=== PATIENT | female | born 1955 | race Caucasian/White ===

== ENCOUNTER 2022-04-26 16:00 | Inpatient (IN) ==
[2022-04-26 17:21] LABS: Venous Bicarbonate HCO3 26.1 mmol/L (24-28)
[2022-04-26] MEDS ORDERED: LORazepam 2 mg VIAL 1 ml IV PUSH ONE ×2 (17:26→20:39)
[2022-04-26] MEDS ORDERED: Lorazepam PYXIS KEY PRN ×2 (17:26→20:39)
[2022-04-26] MEDS ORDERED: NS 0.9% 1000 ml BAG 1,000 ML IV ONE (17:27)
[2022-04-26 17:28] LABS: Activated Partial Thrombo Time 30.4 seconds (26.0-38.0); INR 1.15 (0.88-1.18)
[2022-04-26 17:59] LABS: ALT 10 U/L (7-52); AST 13 U/L (13-39); Albumin 4.2 g/dL (3.2-5.2); Albumin/Globulin Ratio 1.9 (1-3); Alcohol, S < 13 mg/dL (<13); Alkaline Phosphatase 82 U/L (35-149); Anion Gap 8 mmol/L (2-11); Blood Urea Nitrogen 11 mg/dL (6-24); CO2 Carbon Dioxide 22 mmol/L (22-32); Calcium 9.4 mg/dL (8.6-10.3); Chloride 99 mmol/L (101-111); Cholesterol 188 mg/dL; Globulin 2.2 g/dL (2-4); Glucose 94 mg/dL (70-100); HDL Cholesterol 50.7 mg/dL; LDL Cholesterol 112 mg/dL; Magnesium 2.2 mg/dL (1.9-2.7); Microcytosis 3+; Platelet Morphology Large; Potassium 4.1 mmol/L (3.5-5.0); Sodium 129 mmol/L (135-145); Total Protein 6.4 g/dL (6.4-8.9); Triglycerides 125 mg/dL; eGFR CKD-EPI 90.1 (>60)
[2022-04-26 18:00] LABS: Spherocytes 1+; Tear Drop Cells 1+
[2022-04-26 18:02] LABS: ABS Basophils 0.2 10^3/ul (0-0.2); ABS Eosinophils 0.1 10^3/ul (0-0.6); ABS Lymphocytes 2.2 10^3/ul (1.0-4.8); ABS Monocytes 0.6 10^3/ul (0-0.8); ABS Neutrophils 7.1 10^3/ul (1.5-7.7); Eosinophil % 0.8 %; Hematocrit 28 % (35-47); Hemoglobin 8.5 g/dL (12.0-16.0); Lymphocyte % 22.2 %; Mean Corpuscular HGB Conc 31 g/dL (31-36); Mean Corpuscular Hemoglobin 20 pg (27-31); Mean Corpuscular Volume 65 fL (80-97); Mean Platelet Volume 7.3 fL (7.4-10.4); Platelet Count 336 10^3/uL (150-450); Red Blood Count 4.26 10^6 /uL (3.70-4.87); Red Cell Distribution Width 19 % (10-15); White Blood Count 10.1 10^3/uL (3.5-10.8)
[2022-04-26 18:31] LABS: Acetaminophen < 15 mcg/mL; Salicylate < 2.50 mg/dL (<30)
[2022-04-26 18:46] LABS: Urine Appearance Clear; Urine Bilirubin Negative (Negative); Urine Blood Negative (Negative); Urine Color Straw; Urine Glucose Negative (Negative); Urine Ketones Negative (Negative); Urine Nitrite Negative (Negative); Urine Protein Negative (Negative); Urine Specific Gravity 1.003 (1.002-1.030); Urine Urobilinogen Negative (Negative)
[2022-04-26 18:58] LABS: TSH Ultra Thyroid Stim Horm 0.2 mcIU/mL (0.34-5.60)
[2022-04-26 19:05] LABS: Osmolality Serum 275 mOsm/kg (275-295)
[2022-04-26 19:20] LABS: Urine Benzodiazepine Screen None Detected (None Detect); Urine Cannabinoids Screen None Detected (None Detect); Urine Opiates Screen None Detected (None Detect)
[2022-04-26 20:31] LABS: Urine Buprenorphine Screen None Detected (None Detect); Urine Fentanyl Screen None Detected (None Detect); Urine Hydrocodone Screen None Detected (None Detect)
[2022-04-26 20:33] LABS: PCO2 Arterial 33 mmHg (35-45); PO2 Arterial 96 mmHg (80-100)
[2022-04-26 22:17] LABS: Free T3 2.3 pg/mL (2.5-3.9)
[2022-04-26 22:19] LABS: Free T4 0.89 ng/dL (0.61-1.12)
[2022-04-27] MEDS ORDERED: Al Hydrox/Mg Hydrox/Simet LIQ 30 ML UDC PO PRN (00:25)
[2022-04-27 06:53] LABS: Blood Urea Nitrogen 9 mg/dL (6-24); CO2 Carbon Dioxide 21 mmol/L (22-32); Calcium 8.8 mg/dL (8.6-10.3); Chloride 104 mmol/L (101-111); Glucose 94 mg/dL (70-100); Magnesium 2.2 mg/dL (1.9-2.7); Sodium 134 mmol/L (135-145); eGFR CKD-EPI 97.9 (>60)
[2022-04-27 07:01] LABS: Anion Gap 9 mmol/L (2-11)
[2022-04-27 07:20] LABS: Hematocrit 29 % (35-47); Hemoglobin 8.4 g/dL (12.0-16.0); Mean Corpuscular HGB Conc 29 g/dL (31-36); Mean Corpuscular Hemoglobin 20 pg (27-31); Mean Corpuscular Volume 69 fL (80-97); Mean Platelet Volume 7.4 fL (7.4-10.4); Platelet Count 258 10^3/uL (150-450); Red Blood Count 4.18 10^6 /uL (3.70-4.87); Red Cell Distribution Width 19 % (10-15); White Blood Count 6.1 10^3/uL (3.5-10.8)
[2022-04-27] MEDS ORDERED: Nicotine GUM 4MG FRUIT FLAVOR PO PRN (09:48)
[2022-04-27] MEDS ORDERED: Nicotine PATCH 21 MG/24 HR PATCH TRANSDERM SCH (10:00)
[2022-04-27] MEDS ORDERED: HYDROMORPHONE 16 MG PO SCH (11:21)
[2022-04-27 11:39] VITALS: BP 134/72
[2022-04-27] MEDS ORDERED: CMCS: Pravastatin 20 mg TAB (NF) PO SCH (21:00)
[2022-04-28] MEDS ORDERED: HYDROMORPHONE 16 MG PO SCH (09:00)
== END 2022-04-27 14:15 | disposition home or self-care (01) | DRG 71 ==
LOC: ED 16:00 → EDHOLD 20:38 → ICU 04-27 00:23
PROVIDERS: ADMIT Internal Medicine Critical Care Medicine; ATTEND Internal Medicine Critical Care Medicine